=== PATIENT | male | born 1955 | race African-American/Black ===

== ENCOUNTER 2022-05-15 11:17 | Inpatient (IN) | payer OTHER ==
[2022-05-15] MEDS ORDERED: Acetaminophen 325 MG TAB PO PRN (16:26)
[2022-05-15] MEDS ORDERED: Bisacodyl 5 MG TAB PO PRN (16:30)
[2022-05-15] MEDS ORDERED: Senokot S 8.6-50 MG TAB PO PRN (16:30)
[2022-05-15] MEDS ORDERED: Ondansetron ODT 4 MG TAB SL PRN (16:30)
[2022-05-15] MEDS ORDERED: oxyCODONE ER 10 MG TAB PO PRN (19:07)
[2022-05-15] MEDS ORDERED: Spironolactone 100 MG TAB PO SCH (19:15)
[2022-05-15] MEDS: Famotidine 20 MG TAB PO SCH (20:16)
[2022-05-15] MEDS: oxyCODONE 5 MG TAB PO PRN (20:16)
[2022-05-15] MEDS: AMOXicillin 250 MG CAP PO SCH (20:19)
[2022-05-15] MEDS ORDERED: AMOXicillin 500 MG CAP PO SCH (21:00)
[2022-05-15 22:36] LABS: SARS-CoV-2 NAA Rapid Test Not Detected (NotDetected)
[2022-05-16 06:13] LABS: #Basophils 0.2 thou/uL (0.0-0.2); #Eosinphils 0.2 thou/uL (0.0-0.7); #Lymphocytes 1.7 thou/uL (1.20-3.40); #Monocytes 1.5 thou/uL (0.11-0.59); #Neutrophils 9.8 thou/uL (1.40-6.50); %Basophils 1.4 % (0.0-1.0); %Eosinophils 1.7 % (0.0-10.0); %Lymphocytes 12.5 % (21.0-51.0); %Monocytes 11.3 % (0.0-10.0); %Neutrophils 73.1 % (42.0-75.0); Hemoglobin 10.8 g/dL (14.0-18.0); Mean Corpuscular HGB CONC 32.4 g/dL (32.0-36.0); Mean Corpuscular Hemoglobin 34.3 pg (27.0-31.0); Mean Platelet Volume 7.9 fL (7.4-10.4); Platelet Count 104 10x3/uL (130-400); RBC Distribution Width 19.1 % (11.5-14.5); Red Blood Cell (RBC) Count 3.16 mill/uL (4.70-6.10); White Blood Cell (WBC) Count 13.4 10x3/uL (4.8-10.8)
[2022-05-16 06:19] LABS: ALT (SGPT) 40 U/L (8-55); Albumin 1.9 g/dL (3.4-4.8); Alkaline Phosphatase 137 U/L (40-110); Anion Gap 13 mmol/L (10-20); BUN (Urea Nitrogen) 10 mg/dL (8.4-25.7); Bilirubin, Total 8.9 mg/dL (0.2-1.2); Calc. Creatinine Clearance 169 mL/min (70-130); Calcium 8.1 mg/dL (7.8-10.44); Carbon Dioxide 20 mmol/L (23-31); Chloride 101 mmol/L (98-107); Estimated GFR 98; Globulin 5.3 g/dL (2.4-3.5); Glucose 79 mg/dL (80-115); Potassium 5.2 mmol/L (3.5-5.1); Protein, Total 7.2 g/dL (5.8-8.1); Sodium 129 mmol/L (136-145)
[2022-05-16 06:24] LABS: AST (SGOT) 94 U/L (5-34); Magnesium 1.8 mg/dL (1.6-2.6)
[2022-05-16] MEDS: oxyCODONE 5 MG TAB PO PRN (07:43)
[2022-05-16] MEDS: AMOXicillin 250 MG CAP PO SCH ×2 (07:45→21:49)
[2022-05-16] MEDS: Multivitamin W/ Minerals 1 TAB PO SCH (07:46)
[2022-05-16] MEDS: Furosemide 40 MG TAB PO SCH (07:47)
[2022-05-16] MEDS: Famotidine 20 MG TAB PO SCH ×2 (07:47→21:49)
[2022-05-16] MEDS: Thiamine 100 MG TAB PO SCH (07:47)
[2022-05-16] MEDS: Magnesium Oxide 400 MG TAB PO SCH (07:47)
[2022-05-16] MEDS: Folic Acid 1 MG TAB PO SCH (07:47)
[2022-05-16] MEDS: Spironolactone 100 MG TAB PO SCH (07:51)
[2022-05-17] MEDS: oxyCODONE 5 MG TAB PO PRN ×2 (06:05→20:41)
[2022-05-17 06:25] LABS: Anion Gap 10 mmol/L (10-20); BUN (Urea Nitrogen) 11 mg/dL (8.4-25.7); Calc. Creatinine Clearance 163 mL/min (70-130); Calcium 8.2 mg/dL (7.8-10.44); Carbon Dioxide 22 mmol/L (23-31); Chloride 102 mmol/L (98-107); Estimated GFR 97; Glucose 96 mg/dL (80-115); Potassium 4.1 mmol/L (3.5-5.1); Sodium 130 mmol/L (136-145)
[2022-05-17 06:32] LABS: #Basophils 0.1 thou/uL (0.0-0.2); #Eosinphils 0.3 thou/uL (0.0-0.7); #Lymphocytes 2.1 thou/uL (1.20-3.40); #Monocytes 2.2 thou/uL (0.11-0.59); #Neutrophils 8.6 thou/uL (1.40-6.50); %Basophils 1.7 % (0.0-1.0); %Lymphocytes 15.7 % (21.0-51.0); %Monocytes 16.4 % (0.0-10.0); %Neutrophils 64.2 % (42.0-75.0); Hemoglobin 10.4 g/dL (14.0-18.0); Mean Corpuscular HGB CONC 31.2 g/dL (32.0-36.0); Mean Corpuscular Hemoglobin 33.7 pg (27.0-31.0); Mean Platelet Volume 7.3 fL (7.4-10.4); Platelet Count 89 10x3/uL (130-400); RBC Distribution Width 19.5 % (11.5-14.5); White Blood Cell (WBC) Count 13.4 10x3/uL (4.8-10.8)
[2022-05-17] MEDS: Magnesium Oxide 400 MG TAB PO SCH (08:57)
[2022-05-17] MEDS: AMOXicillin 250 MG CAP PO SCH ×2 (08:58→20:41)
[2022-05-17] MEDS: Furosemide 40 MG TAB PO SCH (08:58)
[2022-05-17] MEDS: Famotidine 20 MG TAB PO SCH ×2 (08:58→20:42)
[2022-05-17] MEDS: Thiamine 100 MG TAB PO SCH (08:58)
[2022-05-17] MEDS: Spironolactone 100 MG TAB PO SCH (08:58)
[2022-05-17] MEDS: Multivitamin W/ Minerals 1 TAB PO SCH (08:58)
[2022-05-17] MEDS: Folic Acid 1 MG TAB PO SCH (08:58)
[2022-05-17] MEDS: Melatonin 3 MG TAB PO PRN (20:42)
[2022-05-18] MEDS: Acetaminophen 325 MG TAB PO PRN ×2 (03:41→13:47)
[2022-05-18] MEDS: Spironolactone 100 MG TAB PO SCH (08:11)
[2022-05-18] MEDS: AMOXicillin 250 MG CAP PO SCH ×2 (08:11→20:50)
[2022-05-18] MEDS: Folic Acid 1 MG TAB PO SCH (08:12)
[2022-05-18] MEDS: Thiamine 100 MG TAB PO SCH (08:12)
[2022-05-18] MEDS: Magnesium Oxide 400 MG TAB PO SCH (08:12)
[2022-05-18] MEDS: Furosemide 40 MG TAB PO SCH (08:12)
[2022-05-18] MEDS: Famotidine 20 MG TAB PO SCH ×2 (08:12→20:50)
[2022-05-18] MEDS: Multivitamin W/ Minerals 1 TAB PO SCH (08:12)
[2022-05-18] MEDS: oxyCODONE 5 MG TAB PO PRN (08:14)
[2022-05-18] MEDS ORDERED: Amlodipine 10 MG TAB PO SCH (14:00)
[2022-05-18] MEDS ORDERED: Polyethylene Glycol 3350 17 GM Packet PO SCH (14:00)
[2022-05-19] MEDS: Melatonin 3 MG TAB PO PRN ×2 (00:43→21:23)
[2022-05-19] MEDS: oxyCODONE 5 MG TAB PO PRN ×2 (04:22→21:24)
[2022-05-19 07:29] VITALS: BMI 40.8
[2022-05-19] MEDS: Spironolactone 100 MG TAB PO SCH (08:37)
[2022-05-19] MEDS: Furosemide 40 MG TAB PO SCH (08:37)
[2022-05-19] MEDS: AMOXicillin 250 MG CAP PO SCH ×2 (08:38→21:23)
[2022-05-19] MEDS: Multivitamin W/ Minerals 1 TAB PO SCH (08:38)
[2022-05-19] MEDS: Famotidine 20 MG TAB PO SCH ×2 (08:38→21:24)
[2022-05-19] MEDS: Thiamine 100 MG TAB PO SCH (08:39)
[2022-05-19] MEDS: Amlodipine 5 MG TAB PO SCH (08:39)
[2022-05-19] MEDS: Folic Acid 1 MG TAB PO SCH (08:39)
[2022-05-19] MEDS: Magnesium Oxide 400 MG TAB PO SCH (08:39)
[2022-05-19] MEDS: Polyethylene Glycol 3350 17 GM Packet PO SCH (08:41)
[2022-05-20 06:14] LABS: ALT (SGPT) 39 U/L (8-55); AST (SGOT) 69 U/L (5-34); Albumin 1.8 g/dL (3.4-4.8); Alkaline Phosphatase 116 U/L (40-110); Anion Gap 11 mmol/L (10-20); BUN (Urea Nitrogen) 9 mg/dL (8.4-25.7); Bilirubin, Total 7.5 mg/dL (0.2-1.2); Calc. Creatinine Clearance 171 mL/min (70-130); Calcium 8.1 mg/dL (7.8-10.44); Carbon Dioxide 23 mmol/L (23-31); Chloride 101 mmol/L (98-107); Estimated GFR 98; Globulin 4.9 g/dL (2.4-3.5); Glucose 95 mg/dL (80-115); Potassium 4.1 mmol/L (3.5-5.1); Protein, Total 6.7 g/dL (5.8-8.1); Sodium 131 mmol/L (136-145)
[2022-05-20 07:18] LABS: #Basophils 0.2 thou/uL (0.0-0.2); #Eosinphils 0.2 thou/uL (0.0-0.7); #Lymphocytes 1.9 thou/uL (1.20-3.40); #Monocytes 1.4 thou/uL (0.11-0.59); %Basophils 1.8 % (0.0-1.0); %Eosinophils 2.2 % (0.0-10.0); %Lymphocytes 22.2 % (21.0-51.0); %Neutrophils 57.8 % (42.0-75.0); Mean Corpuscular HGB CONC 31.6 g/dL (32.0-36.0); Mean Corpuscular Hemoglobin 34.3 pg (27.0-31.0); Mean Platelet Volume 8.9 fL (7.4-10.4); Platelet Count 117 10x3/uL (130-400); RBC Distribution Width 19.2 % (11.5-14.5); Red Blood Cell (RBC) Count 2.91 mill/uL (4.70-6.10); White Blood Cell (WBC) Count 8.6 10x3/uL (4.8-10.8)
[2022-05-20] MEDS: Amlodipine 5 MG TAB PO SCH (08:32)
[2022-05-20] MEDS: Thiamine 100 MG TAB PO SCH (08:32)
[2022-05-20] MEDS: AMOXicillin 250 MG CAP PO SCH ×2 (08:32→20:54)
[2022-05-20] MEDS: Folic Acid 1 MG TAB PO SCH (08:33)
[2022-05-20] MEDS: Famotidine 20 MG TAB PO SCH ×2 (08:33→20:52)
[2022-05-20] MEDS: Multivitamin W/ Minerals 1 TAB PO SCH (08:33)
[2022-05-20] MEDS: Magnesium Oxide 400 MG TAB PO SCH (08:33)
[2022-05-20] MEDS: Furosemide 40 MG TAB PO SCH (08:33)
[2022-05-20] MEDS: Spironolactone 100 MG TAB PO SCH (08:33)
[2022-05-20] MEDS: Polyethylene Glycol 3350 17 GM Packet PO SCH (08:49)
[2022-05-20] MEDS: oxyCODONE 5 MG TAB PO PRN ×2 (09:04→20:52)
[2022-05-20] MEDS: Melatonin 3 MG TAB PO PRN (20:53)
[2022-05-21] MEDS: AMOXicillin 250 MG CAP PO SCH ×2 (08:54→20:51)
[2022-05-21] MEDS: Magnesium Oxide 400 MG TAB PO SCH (08:55)
[2022-05-21] MEDS: Famotidine 20 MG TAB PO SCH ×2 (08:55→20:51)
[2022-05-21] MEDS: Furosemide 40 MG TAB PO SCH (08:55)
[2022-05-21] MEDS: Multivitamin W/ Minerals 1 TAB PO SCH (08:55)
[2022-05-21] MEDS: Spironolactone 100 MG TAB PO SCH (08:56)
[2022-05-21] MEDS: Thiamine 100 MG TAB PO SCH (08:56)
[2022-05-21] MEDS: Amlodipine 5 MG TAB PO SCH (08:56)
[2022-05-21] MEDS: Folic Acid 1 MG TAB PO SCH (08:56)
[2022-05-21] MEDS: Polyethylene Glycol 3350 17 GM Packet PO SCH (08:57)
[2022-05-21] MEDS: Melatonin 3 MG TAB PO PRN (20:59)
[2022-05-21] MEDS: oxyCODONE 5 MG TAB PO PRN (23:18)
[2022-05-22] MEDS: AMOXicillin 250 MG CAP PO SCH ×2 (07:29→21:31)
[2022-05-22] MEDS: Folic Acid 1 MG TAB PO SCH (07:30)
[2022-05-22] MEDS: Furosemide 40 MG TAB PO SCH (07:30)
[2022-05-22] MEDS: Thiamine 100 MG TAB PO SCH (07:31)
[2022-05-22] MEDS: Spironolactone 100 MG TAB PO SCH (07:31)
[2022-05-22] MEDS: Famotidine 20 MG TAB PO SCH ×2 (07:31→21:31)
[2022-05-22] MEDS: Multivitamin W/ Minerals 1 TAB PO SCH (07:32)
[2022-05-22] MEDS: Magnesium Oxide 400 MG TAB PO SCH (07:32)
[2022-05-22] MEDS: Polyethylene Glycol 3350 17 GM Packet PO SCH (07:33)
[2022-05-22] MEDS: Amlodipine 5 MG TAB PO SCH (07:38)
[2022-05-22] MEDS: oxyCODONE 5 MG TAB PO PRN (21:31)
[2022-05-22] MEDS: Melatonin 3 MG TAB PO PRN (21:34)
[2022-05-23] MEDS: Spironolactone 100 MG TAB PO SCH (09:25)
[2022-05-23] MEDS: Thiamine 100 MG TAB PO SCH (09:25)
[2022-05-23] MEDS: Folic Acid 1 MG TAB PO SCH (09:25)
[2022-05-23] MEDS: Multivitamin W/ Minerals 1 TAB PO SCH (09:25)
[2022-05-23] MEDS: Famotidine 20 MG TAB PO SCH ×2 (09:25→21:10)
[2022-05-23] MEDS: Magnesium Oxide 400 MG TAB PO SCH (09:25)
[2022-05-23] MEDS: AMOXicillin 250 MG CAP PO SCH ×2 (09:25→21:09)
[2022-05-23] MEDS: Furosemide 40 MG TAB PO SCH (09:26)
[2022-05-23] MEDS: Polyethylene Glycol 3350 17 GM Packet PO SCH (09:26)
[2022-05-23] MEDS: Amlodipine 5 MG TAB PO SCH (09:26)
[2022-05-23] MEDS: Melatonin 3 MG TAB PO PRN (21:09)
[2022-05-24 09:43] VITALS: BP 144/69; TEMP 97.9
[2022-05-24] MEDS: Famotidine 20 MG TAB PO SCH (09:57)
[2022-05-24] MEDS: Folic Acid 1 MG TAB PO SCH (09:57)
[2022-05-24] MEDS: Multivitamin W/ Minerals 1 TAB PO SCH (09:57)
[2022-05-24] MEDS: Polyethylene Glycol 3350 17 GM Packet PO SCH (09:58)
[2022-05-24] MEDS: Magnesium Oxide 400 MG TAB PO SCH (09:58)
[2022-05-24] MEDS: Thiamine 100 MG TAB PO SCH (09:58)
[2022-05-24] MEDS: Amlodipine 5 MG TAB PO SCH (09:58)
[2022-05-24] MEDS: Furosemide 40 MG TAB PO SCH (09:58)
[2022-05-24] MEDS: AMOXicillin 250 MG CAP PO SCH (09:58)
[2022-05-24] MEDS: Spironolactone 100 MG TAB PO SCH (09:58)
== END 2022-05-24 11:36 | disposition home or self-care (01) | DRG 948 ==
LOC: NAV ACUTE 15:19
PROVIDERS: ADMIT Family Medicine; ATTEND Family Medicine
DX: R53.81 Other malaise (principal); N39.0 Urinary tract infection, site not specified; E87.1 Hypo-osmolality and hyponatremia; R78.81 Bacteremia; R53.1 Weakness; I10 Essential (primary) hypertension; K74.60 Unspecified cirrhosis of liver; E87.5 Hyperkalemia; K59.00 Constipation, unspecified; B95.1 Streptococcus, group B, as the cause of diseases classified elsewhere; Z20.822 Contact with and (suspected) exposure to COVID-19; Z98.890 Other specified postprocedural states; Z79.899 Other long term (current) drug therapy
CPT/HCPCS: 36415; 80048; 80053; 83735; 85025; U0002

== ENCOUNTER 2023-11-09 19:50 | Emergency (ER) | payer BC, MEDICARE ==
[2023-11-09 20:42] LABS: Anisocytosis MODERATE=16-30 cells (100X) (0-5/hpf); Band 2 % (5-11); Crenated RBC SLIGHT = 1-5 cells (100X) (None Seen); Hemoglobin 7.9 g/dL (14.0-18.0); Lymphocytes 6 % (21-51); MDiff Complete? YES; Macrocytosis MODERATE=16-30 cells (100X) (0-5/hpf); Mean Corpuscular HGB CONC 31.6 g/dL (32.0-36.0); Mean Corpuscular Hemoglobin 37.7 pg (27.0-31.0); Mean Platelet Volume 8.9 fL (7.4-10.4); Monocytes 4 % (0-10); Neutrophil 87 % (42-75); Platelet Adequacy Comment Appears Decreased; Platelet Count 58 10x3/uL (130-400); RBC Distribution Width 21.6 % (11.5-14.5); Target Cells SLIGHT = 2-5 cells (100X) (0-1/hpf); White Blood Cell (WBC) Count 8.7 10x3/uL (4.8-10.8)
[2023-11-09 20:44] LABS: Troponin I 0.022 ng/mL (< 0.028)
[2023-11-09 21:20] LABS: ALT (SGPT) 60 U/L (8-55); AST (SGOT) 92 U/L (5-34); Albumin 2.7 g/dL (3.4-4.8); Alkaline Phosphatase 157 U/L (40-110); Anion Gap 16 mmol/L (10-20); BUN (Urea Nitrogen) 43 mg/dL (8.4-25.7); Calc. Creatinine Clearance 0 mL/min (70-130); Carbon Dioxide 25 mmol/L (23-31); Chloride 97 mmol/L (98-107); Estimated GFR 68; Globulin 3.9 g/dL (2.4-3.5); Glucose 107 mg/dL (80-115); Potassium 5.1 mmol/L (3.5-5.1); Protein, Total 6.6 g/dL (5.8-8.1); Sodium 133 mmol/L (136-145)
[2023-11-09 21:21] LABS: Lipase 290 U/L (8-78)
[2023-11-09 21:22] LABS: Bilirubin, Total 27.3 mg/dL (0.2-1.2)
[2023-11-09 21:59] LABS: Bilirubin Large (Negative); Blood, Urine Negative (Negative); Clarity Clear (Clear); Glucose, Urine (Dipstick) Negative (Negative); Ketone, Urine Negative (Negative); Leukocyte Negative (Negative); Nitrite Negative (Negative); Protein, Urine (Dipstick) Negative (Neg-Trace); Squamous Epithelial 0-3 HPF (0-3); Urobilinogen > or = 8.0 mg/dL (Less than 2); pH, Urine 6.5 (5.0-9.0)
[2023-11-09] MEDS ORDERED: Furosemide 40 MG TAB ONE (23:56)
[2023-11-09] MEDS ORDERED: Lactulose 20 GM (30 mL) UDCUP ONE (23:57)
[2023-11-10] MEDS ORDERED: Furosemide 40 MG (4 mL) VIAL ONE (00:08)
[2023-11-10] MEDS ORDERED: Spironolactone 25 MG TAB PO SCH (00:15)
== END 2023-11-10 00:30 | disposition short-term general hospital (02) ==
LOC: NAV ERS 19:50
DX: J90 Pleural effusion, not elsewhere classified (principal); D64.9 Anemia, unspecified; K73.9 Chronic hepatitis, unspecified; E80.6 Other disorders of bilirubin metabolism; I10 Essential (primary) hypertension
CPT/HCPCS: 71045; 80053; 81001; 82140; 83690; 83880; 84484; 85025; 85379; 93005; 94760; J1940; 96374